=== PATIENT | male | born 2000 | race Caucasian/White ===

== ENCOUNTER 2023-04-17 12:30 | Emergency (ER) | payer BC ==
[2023-04-17] MEDS: Diphtheria,Pertussis(Acell),Tetanus Vaccine 0.5 ML Syringe IM ONE (13:01)
[2023-04-17] MEDS: Take Home: Clindamycin HCl 150 MG, 12 Cap Pack PO ONE (13:02)
== END 2023-04-17 13:02 | disposition home or self-care (01) ==
LOC: DL.ED 12:30
DX: S01.511A Laceration without foreign body of lip, initial encounter (principal); Z23 Encounter for immunization; W50.3XXA Accidental bite by another person, initial encounter
CPT/HCPCS: 90471; 90715; 99282; 99282-25; A9270-GY

== ENCOUNTER 2023-07-05 02:52 | Emergency (ER) | payer BC ==
[2023-07-05] MEDS ORDERED: Sodium Chloride 0.9% 10 ML Syringe FLUSH PRN (03:12)
[2023-07-05 03:18] LABS: BASOPHILS PERCENT AUTO 0.4 % (0.0-1.0); EOSINOPHILS PERCENT AUTO 1.8 % (1.0-3.0); HEMATOCRIT 44.6 % (40.0-54.0); HEMOGLOBIN 15.3 g/dL (14.0-18.0); LYMPHOCYTES PERCENT AUTO 35.7 % (20.5-50.1); MEAN CORPUSCULAR HEMOGLOBIN 30.7 pg (27.0-34.0); MEAN CORPUSCULAR HGB CONC 34.3 g/dL (33.0-35.0); MEAN CORPUSCULAR VOLUME 89.4 fL (80-100); MONOCYTES PERCENT AUTO 8.5 % (2-8); NEUTROPHILS PERCENT AUTO 53.6 % (42.2-75.2); PLATELET COUNT,PLT 293 10^3/uL (150-450); RED BLOOD CELL COUNT 4.99 10^6/uL (4.6-6.2); WHITE BLOOD CELL COUNT,WBC 8.4 10^3/uL (5.0-10.0)
[2023-07-05 03:31] LABS: APPEARANCE,URINE CLEAR (CLEAR); BILIRUBIN,URINE NEGATIVE (NEGATIVE); COLOR,URINE YELLOW (YELLOW); GLUCOSE,URINE NEGATIVE (NEGATIVE); KETONES,URINE NEGATIVE (NEGATIVE); LEUKOCYTE ESTERASE,URINE NEGATIVE (NEGATIVE); NITRITE,URINE NEGATIVE (NEGATIVE); OCCULT BLOOD,URINE TRACE-INTACT (NEGATIVE); PH,URINE 6.5 (5.0-9.0); PROTEIN,URINE NEGATIVE (NEGATIVE); UROBILINOGEN,URINE 0.2 mg/dL (0.2-1.0)
[2023-07-05 03:38] LABS: AMPHETAMINES,URINE NEGATIVE (NEGATIVE); BARBITURATES,URINE NEGATIVE (NEGATIVE); BENZODIAZEPINE,URINE NEGATIVE (NEGATIVE); MDMA (ECSTASY), URINE NEGATIVE (NEGATIVE); METHADONE,URINE NEGATIVE (NEGATIVE); METHAMPHETAMINES,URINE NEGATIVE (NEGATIVE); OPIATES,URINE NEGATIVE (NEGATIVE); OXYCODONE,URINE NEGATIVE (NEGATIVE); PHENCYCLIDINE,URINE NEGATIVE (NEGATIVE); TCA,URINE NEGATIVE (NEGATIVE)
[2023-07-05 03:42] LABS: BACTERIA,URINE RARE /HPF (0-FEW/HPF); EPITHELIAL CELLS,URINE RARE /HPF (NOT SEEN); RBC,URINE 0-5 /HPF (0-5); WBC,URINE 0-5 /HPF (0-5/HPF)
[2023-07-05 03:48] LABS: A/G RATIO 1.3; ALANINE AMINOTRANSFERASE,ALT 21 U/L (16-63); ALBUMIN 4.9 g/dL (3.4-5.0); ALKALINE PHOSPHATASE 82 U/L (46-116); ANION GAP 12.3 mEq/L (7-13); ASPARTATE AMNIOTRANSFERASE,AST 18 U/L (15-37); BILIRUBIN TOTAL 0.8 mg/dL (0.2-1.0); BLOOD UREA NITROGEN,BUN 12 mg/dL (7-18); BUN/CREATININE RATIO 11.3 (No establ ref range); CARBON DIOXIDE,CO2 31 mmol/L (21-32); CHLORIDE,CL 101 mmol/L (98-107); CREATININE 1.06 mg/dL (0.70-1.30); ESTIMATED GFR 103 mL/min (>=60); ETHANOL BLOOD MEDICAL 167 mg/dL (0); GLUCOSE RANDOM 90 mg/dL (70-99); MAGNESIUM 2.3 mg/dL (1.8-2.4); POTASSIUM,K 3.3 mmol/L (3.5-5.1); PROTEIN TOTAL,TP 8.7 g/dL (6.4-8.2); SODIUM,NA 141 mmol/L (136-145)
[2023-07-05 04:43] LABS: CORONAVIRUS COVID-19 NAA NEGATIVE (NEGATIVE); INFLUENZA A NAA NEGATIVE (NEGATIVE); INFLUENZA B NAA NEGATIVE (NEGATIVE)
== END 2023-07-05 10:37 ==
LOC: DL.ED 02:52
DX: R45.851 Suicidal ideations (principal); R45.850 Homicidal ideations; Z20.822 Contact with and (suspected) exposure to COVID-19; Z79.899 Other long term (current) drug therapy
CPT/HCPCS: 0240U; 36415; 80053; 80305-QW; 80307; 81001; 83735; 85025; 99284; 99285; J3490

== ENCOUNTER 2024-03-15 18:00 | Emergency (ER) | payer BC ==
[2024-03-15] MEDS: Sodium Chloride 0.9% 10 ML Syringe FLUSH PRN (18:31)
[2024-03-15] MEDS: Haloperidol Lactate 5 MG/ML SDV IM ONE (18:34)
[2024-03-15] MEDS: diphenhydrAMINE 50 MG/ML SDV IVPUSH ONE (18:40)
[2024-03-15] MEDS: LORazepam 2 MG/ML SDV IVPUSH ONE (18:40)
[2024-03-15] MEDS: Sodium Chloride 0.9% 1,000 ML IV ONE (18:40)
[2024-03-15 18:45] LABS: BASOPHILS PERCENT AUTO 0.6 % (0.0-1.0); HEMATOCRIT 46.9 % (40.0-54.0); HEMOGLOBIN 16.1 g/dL (14.0-18.0); LYMPHOCYTES PERCENT AUTO 21.2 % (20.5-50.1); MEAN CORPUSCULAR HEMOGLOBIN 31.1 pg (27.0-34.0); MEAN CORPUSCULAR HGB CONC 34.3 g/dL (33.0-35.0); MEAN CORPUSCULAR VOLUME 90.5 fL (80-100); MONOCYTES PERCENT AUTO 6.5 % (2-8); NEUTROPHILS PERCENT AUTO 71.7 % (42.2-75.2); PLATELET COUNT,PLT 293 10^3/uL (150-450); RED BLOOD CELL COUNT 5.18 10^6/uL (4.6-6.2); WHITE BLOOD CELL COUNT,WBC 6.6 10^3/uL (5.0-10.0)
[2024-03-15 19:03] LABS: A/G RATIO 1.3; ALANINE AMINOTRANSFERASE,ALT 29 U/L (16-63); ALBUMIN 4.6 g/dL (3.4-5.0); ALKALINE PHOSPHATASE 88 U/L (46-116); ANION GAP 18.8 mEq/L (7-13); ASPARTATE AMNIOTRANSFERASE,AST 33 U/L (15-37); BILIRUBIN TOTAL 0.7 mg/dL (0.2-1.0); BLOOD UREA NITROGEN,BUN 15 mg/dL (7-18); BUN/CREATININE RATIO 12.3 (No establ ref range); CALCIUM 10.1 mg/dL (8.5-10.1); CARBON DIOXIDE,CO2 25 mmol/L (21-32); CHLORIDE,CL 100 mmol/L (98-107); CREATININE 1.22 mg/dL (0.70-1.30); EST CRCL DRUG DOSING (CG) 79.88 mL/min; GLUCOSE RANDOM 145 mg/dL (70-99); LIPASE 22 U/L (16-77); MAGNESIUM 1.8 mg/dL (1.8-2.4); POTASSIUM,K 3.8 mmol/L (3.5-5.1); PROTEIN TOTAL,TP 8.2 g/dL (6.4-8.2); SODIUM,NA 140 mmol/L (136-145)
[2024-03-15 19:04] LABS: ESTIMATED GFR 87 mL/min (>=60)
[2024-03-15 19:09] LABS: LACTIC ACID 3.8 mmol/L (0.4-2.0)
[2024-03-15] MEDS: Take Home: Ondansetron 4 MG Tab.DIS, 5 Tab Pack PO ONE (19:54)
== END 2024-03-15 20:08 | disposition home or self-care (01) ==
LOC: DL.ED 18:00
DX: F10.129 Alcohol abuse with intoxication, unspecified (principal); F12.10 Cannabis abuse, uncomplicated; E86.0 Dehydration; E87.20 Acidosis, unspecified; F17.210 Nicotine dependence, cigarettes, uncomplicated; Z79.899 Other long term (current) drug therapy
CPT/HCPCS: 36415; 80053; 83605; 83690; 83735; 84145; 85025; 96361; 96372; 96374; 96375; 99283; 99284; J1200; J1630; J2060; J7030; Q0162; J3490